=== PATIENT | female | born 1950 | race Caucasian/White ===

== ENCOUNTER → 2017-12-17 08:56 | Outpatient (CLI) | payer MEDICARE, SELFPAY ==
[2017-12-17 10:39] LABS: AST(SGOT) 16 U/L (15-37); Alanine Aminotransfer ALT/SGPT 24 U/L (13-56); Albumin, Serum 3.5 g/dL (3.2-5.0); Alkaline Phosphatase 58 U/L (45-117); Bilirubin, Direct 0.12 mg/dL (0.00-0.30); Cholesterol 208 mg/dL (200); Globulin 3.5 g/dL (2.2-4.2); High Density Lipoprotein 39 mg/dL; Triglycerides 252 mg/dL; Very Low Density Lipoprotein 50 mg/dL (5-40)
== END ==
PROVIDERS: Family Provider Family Medicine; PCP Family Medicine; Visit Provider Internal Medicine Cardiovascular Disease
DX: E78.5 Hyperlipidemia, unspecified (principal); I51.81 Takotsubo syndrome
CPT/HCPCS: 36415; 80061; 80076

== ENCOUNTER 2018-03-19 10:00 | Emergency (ER) | payer MEDICARE, SELFPAY ==
[2018-03-19 10:01] VITALS: BP 173/91; PULSE 70; RESP 14; TEMP 37.1; O2SAT 98; BMI 32.7
--- NOTE | 2018-03-19 10:18 | EKG12_ITS ---
Test Reason : CP Blood Pressure : / mmHG Vent. Rate : 066 BPM Atrial Rate : 066 BPM P-R Int : 140 ms QRS Dur : 088 ms QT Int : 392 ms P-R-T Axes : 050 062 050 degrees QTc Int : 410 ms Normal sinus rhythm Normal ECG Confirmed by JOHNATHAN CARBONE MD ([id number]), editor city YELENA MCINTYRE ([id number]) on 03/21/2018 3:46:46 PM Referred By: LLOYD Confirmed By:JOHNATHAN CARBONE MD
--- NOTE | 2018-03-19 10:25 | RAD_ITS ---
STUDY: X-RAY CHEST REASON FOR EXAM: Female, 67 years old. Chest pain TECHNIQUE: Portable upright chest COMPARISON: 09/26/2015 FINDINGS: The lungs are clear and expanded. Normal cardiomediastinal silhouette, tay and pleural margins. No acute osseous or upper abdominal process. RAD/Chest 1 View (Portable) IMPRESSION: No acute cardiopulmonary process. Electronically Signed: Jeffrey Laurent, at 11:13 EST Tel , Service support ,
[2018-03-19 10:39] LABS: Absolute Lymphocyte Count 2.24 X10^3/ul (0.83-4.51); Absolute Neutrophil Count 2.1 X10^3/uL (2.0-7.7); Basophil# 0.03 X10^3/uL; Basophil% 0.6 % (0-1); Eosinophil# 0.06 X10^3/uL; Eosinophils% 1.2 % (0-5); Hematocrit 43.3 % (37-47); Hemoglobin 13.7 g/dl (12.0-15.0); Lymphocyte # 2.24 X10^3/ul (4.0); Lymphocyte % 46.5 % (19-41); Mean Corp Hgb Conc 31.6 g/gl (32-36); Mean Corpuscular Hgb 32.2 pg (27.0-32.0); Mean Corpuscular Volume 101.6 fL (81-99); Mean Platelet Vol. 10.4 fl (6.2-12.0); Monocyte# 0.41 X10^3/uL; Monocyte% 8.5 % (0-10); Neutrophil # 2.08 X10^3/uL (2.7-7.7); Neutrophil % 43.2 % (47-70); Platelet Count 291 K/mm3 (150-450); RBC Distribution Width CV 12.7 % (11.6-14.6); RBC Distribution Width SD 47.4 fl (35.1-43.9); Red Blood Count 4.26 M/mm3 (4.2-5.4); White Blood Count 4.8 K/mm3 (4.4-11.0)
[2018-03-19 10:40] LABS: POSITIVE COUNT NO; POSITIVE DIFFERENTIAL NO; POSITIVE MORPHOLOGY NO
[2018-03-19 10:46] LABS: AST(SGOT) 15 U/L (15-37); Alanine Aminotransfer ALT/SGPT 24 U/L (13-56); Albumin, Serum 3.8 g/dL (3.2-5.0); Alkaline Phosphatase 70 U/L (45-117); Anion Gap 8 (5-15); BUN 13 mg/dL (7-18); Calcium,Total 8.9 mg/dL (8.5-10.1); Chloride 108 mmol/L (98-107); Creatinine, Serum 0.72 mg/dL (0.55-1.02); EST Glomerular Filtration Rate 85 mL/min (>60); Est Glom Filt Rate - Afr Amer 103 mL/min (>60); Estimated Creatinine Clearance 41.99 ml/min; Globulin 3.9 g/dL (2.2-4.2); Glucose 103 mg/dL (74-106); Lipase 121 U/L (73-393); Potassium 4.2 mmol/L (3.5-5.1); Protein, Total 7.7 g/dL (6.4-8.2); Sodium Level 144 mmol/L (136-145)
--- NOTE | 2018-03-19 10:52 | ED.VISSUMM ---
- ER Visit Summary Date of Service: 03/19/18 Chief Complaint: Chest pain History of Present Illness: The patient is a 67 F who states that she woke this morning at 415 and had a chest heaviness that has been constant since her arrival here in the department. This is over 6 hours of constant pain. Patient states that she also took an enema last night feeling like she needed to have a bowel movement. She notes nausea. She notes that she was having some sharp shooting chest pain in her chest also had a bit of a headache. She was feeling fatigued. She states she was concerned and her strip machine tender told her that she had chest heaviness she should come to the hospital. Patient has a history of tox obvious cardiomyopathy and October 2015 underwent heart catheterization that showed angiographically normal LAD and RCA. There is a 20% mild circumflex lesion. She is a former smoker. Also history of hypertension high cholesterol Physical Examination: Afebrile vital signs are stable Gen: Well-nourished well-developed Head: Normocephalic atraumatic Eyes: Perrl EOMI ENT: TMs clear no rhinorrhea moist mucous membranes Neck: Supple no lymphadenopathy no JVD nontender CVS: Regular rate rhythm no murmurs normal S1-S2 Respiratory: No distress clear to auscultation bilaterally chest nontender Abdomen: Soft nontender nondistended normal bowel sounds no masses Back: Nontender Extremity: Nontender no edema Skin: Normal color no rash Neuro: alert orientated ?3 CN II-XII intact normal strength sensation reflexes gait cerebellar Psych: Normal affect normal mood Test Results: EKG demonstrates a sinus rhythm at a rate 69. CBC chemistries liver lipase normal troponin is negative and again this is a greater than 6 hours of constant chest pain troponin. Chest x-ray negative. Emergency Department Course and Treatment: Patient had a heart cath just over 2 years ago. Her CYNTHIA score is 2. I believe this to be very atypical. Patient be discharged home to follow-up. Impression: 1. Chest pain 2. Nausea This note was generated with [employer] dictation software. It may contain incorrect words, spelling, and punctuation that were not noted in review of the chart prior to signing ED Disposition - Plan for ED Patient: Disposition: Home or Assisted Living Chief Complaint: Chest Pain Instructions: ED Chest Pain Atypical Unkn Cause Referrals: Glenroy Amezcua MD [Primary Care Provider] - 1 Week
[2018-03-19] MEDS: Ondansetron 4 MG/2 ML Vial IV (10:58)
--- NOTE | 2018-03-19 11:06 | ED.DCSUM_ITS ---
- ER Visit Summary Date of Service: 03/19/18 Chief Complaint: Chest pain History of Present Illness: The patient is a 67 F who states that she woke this morning at 415 and had a chest heaviness that has been constant since her arrival here in the department. This is over 6 hours of constant pain. Patient states that she also took an enema last night feeling like she needed to have a bowel movement. She notes nausea. She notes that she was having some sharp shooting chest pain in her chest also had a bit of a headache. She was feeling fatigued. She states she was concerned and her director sterile processing told her that she had chest heaviness she should come to the hospital. Patient has a history of tox obvious cardiomyopathy and October 2015 underwent heart catheterization that showed angiographically normal LAD and RCA. There is a 20% mild circumflex lesion. She is a former smoker. Also history of hypertension high cholesterol Physical Examination: Afebrile vital signs are stable Gen: Well-nourished well-developed Head: Normocephalic atraumatic Eyes: Perrl EOMI ENT: TMs clear no rhinorrhea moist mucous membranes Neck: Supple no lymphadenopathy no JVD nontender CVS: Regular rate rhythm no murmurs normal S1-S2 Respiratory: No distress clear to auscultation bilaterally chest nontender Abdomen: Soft nontender nondistended normal bowel sounds no masses Back: Nontender Extremity: Nontender no edema Skin: Normal color no rash Neuro: alert orientated ?3 CN II-XII intact normal strength sensation reflexes gait cerebellar Psych: Normal affect normal mood Test Results: EKG demonstrates a sinus rhythm at a rate 69. CBC chemistries liver lipase normal troponin is negative and again this is a greater than 6 hours of constant chest pain troponin. Chest x-ray negative. Emergency Department Course and Treatment: Patient had a heart cath just over 2 years ago. Her CYNTHIA score is 2. I believe this to be very atypical. Patient be discharged home to follow-up. Impression: 1. Chest pain 2. Nausea This note was generated with [employer] dictation software. It may contain incorrect words, spelling, and punctuation that were not noted in review of the chart prior to signing ED Disposition - Plan for ED Patient: Disposition: Home or Assisted Living Chief Complaint: Chest Pain Instructions: ED Chest Pain Atypical Unkn Cause Referrals: Glenroy Amezcua MD [Primary Care Provider] - 1 Week
[2018-03-19 11:36] LABS: Bacteria 0 SEEN /hpf (None Seen); Mucous, Urine 0 SEEN /hpf (<or=2+); Red Blood Cells-Urine 0 SEEN /hpf (0-5); White Blood Cells 0 SEEN /hpf (0-5)
[2018-03-19 11:38] LABS: Color, Urine Yellow (Yellow); Glucose, Dipstick Normal (Normal); Ketone-Dipstick Negative (Negative); Leukocyte Esterase-Dipstick 25 /ul (Negative); Nitrite-Dipstick Negative (Negative); Occult Blood-Urine 10 /ul (Negative); Protein-Dipstick Negative (Negative); Specific Gravity, Urine 1.005 (1.002-1.030); Urine Bilirubin Dipstick Negative (Negative); Urine Clarity Clear (Clear); Urine Urobilinogen Normal (Normal)
[2018-03-19 11:44] LABS: Squamous Epithelial Cells - UA 0-5 SEEN /hpf (5-10)
[2018-03-19 12:17] VITALS: BP 125/80; PULSE 80; RESP 18; TEMP 36.6; O2SAT 98
== END 2018-03-19 12:36 | disposition home or self-care (01) ==
PROVIDERS: Emergency Provider Emergency Medicine; Family Provider Family Medicine; PCP Family Medicine
DX: R07.89 Other chest pain (principal); R11.0 Nausea; R10.9 Unspecified abdominal pain; E78.00 Pure hypercholesterolemia, unspecified; I10 Essential (primary) hypertension; K21.9 Gastro-esophageal reflux disease without esophagitis; E66.9 Obesity, unspecified; Z87.891 Personal history of nicotine dependence
CPT/HCPCS: 71045; 80053; 81001; 83690; 84484; 85025; 93005; 99283; A4216; J2405

== ENCOUNTER → 2018-06-02 15:49 | Outpatient (CLI) | payer MEDICARE, SELFPAY ==
--- NOTE | 2018-06-02 12:30 | COLBX_PTH ---
PATIENT: WANDER LARIOS LOC: [facility] U#:[id number] AGE/SX: 74/F ROOM: RE06/02/[address]: Dr. Jp Bernal MD : [id number] BED: DIS: SPEC #: [id number] RECD: 06/02/18 15:13 STATUS: ROMAN REQuita #: [id number] VEGA: 06/02/18 12:[address]: Jp Bernal DEPT: SURGICAL PATHOLOGY RECD BY: Opal Crabtree ENTERED: 06/03/18 07:33 SP TYPE: COLON BX OTHR DR: Dr. Glenroy Amezcua MD [facility] Tissues: A - Transverse colon B - COLON BIOPSY Procedures: Surgery Specimen Level IV HEADER OPERATION: Colonoscopy with biopsy PRE-OP DIAGNOSIS: Screening / polyp TISSUE SUBMITTED: A - Transverse colon polyp biopsy, rule out adenoma, B - Hepatic flexure polyp biopsy, rule out adenoma MICROSCOPIC DIAGNOSIS A. Transverse colon polyp, biopsy: Hyperplastic polyp. B. Colonic polyp at hepatic flexure, biopsy: Tubular adenoma. AM:sammi 06/03/18 MICROSCOPIC DESCRIPTION Slides are reviewed. GROSS DESCRIPTION A - Received in fixative is one container labeled with the patient's name and designated transverse colon. The specimen consists of multiple irregular fragments of light small soft tissue that in aggregate measure 0.5 x 0.3 x 0.1 cm. The specimen is totally submitted in one cassette. B - Received in fixative is one container labeled with the patient's name and designated hepatic flexure. The specimen consists of two irregular fragments of light small soft tissue that in aggregate measure 0.5 x 0.3 x 0.1 cm. The specimen is totally submitted in one cassette. / AM:sammi 06/02/18 TC:5 CPT: 32929 x2
== END ==
PROVIDERS: Family Provider Family Medicine; PCP Family Medicine; Referring Provider Internal Medicine Gastroenterology; Visit Provider Internal Medicine Gastroenterology
DX: Z12.11 Encounter for screening for malignant neoplasm of colon (principal); K63.5 Polyp of colon
CPT/HCPCS: 88305

== ENCOUNTER → 2018-12-27 07:28 | Outpatient (CLI) | payer MEDICARE, SELFPAY ==
[2018-06-30 13:01] VITALS: BMI 30.9
[2018-12-27 08:21] LABS: AST(SGOT) 14 U/L (15-37); Alanine Aminotransfer ALT/SGPT 21 U/L (13-56); Albumin, Serum 3.5 g/dL (3.2-5.0); Alkaline Phosphatase 58 U/L (45-117); Bilirubin, Direct 0.11 mg/dL (0.00-0.30); Cholesterol 216 mg/dL (200); Globulin 3.4 g/dL (2.2-4.2); High Density Lipoprotein 43 mg/dL; Protein, Total 6.9 g/dL (6.4-8.2); Triglycerides 179 mg/dL; Very Low Density Lipoprotein 36 mg/dL (5-40)
== END ==
PROVIDERS: Family Provider Family Medicine; PCP Family Medicine; Referring Provider Internal Medicine Cardiovascular Disease; Visit Provider Internal Medicine Cardiovascular Disease
DX: E78.5 Hyperlipidemia, unspecified (principal)
CPT/HCPCS: 36415; 80061; 80076

== ENCOUNTER → 2019-03-30 07:54 | Outpatient (CLI) | payer MEDICARE, SELFPAY ==
[2019-02-05 13:20] VITALS: BMI 30.8
[2019-03-30 09:32] LABS: AST(SGOT) 16 U/L (15-37); Alanine Aminotransfer ALT/SGPT 21 U/L (13-56); Albumin, Serum 3.4 g/dL (3.2-5.0); Alkaline Phosphatase 49 U/L (45-117); Bilirubin, Direct 0.15 mg/dL (0.00-0.30); Cholesterol 168 mg/dL (200); Globulin 3.5 g/dL (2.2-4.2); High Density Lipoprotein 48 mg/dL; Protein, Total 6.9 g/dL (6.4-8.2); Triglycerides 138 mg/dL; Very Low Density Lipoprotein 28 mg/dL (5-40)
== END ==
PROVIDERS: Family Provider Family Medicine; PCP Family Medicine; Referring Provider Internal Medicine Cardiovascular Disease; Visit Provider Internal Medicine Cardiovascular Disease
DX: E78.5 Hyperlipidemia, unspecified (principal)
CPT/HCPCS: 36415; 80061; 80076

== ENCOUNTER → 2020-07-22 11:42 | Outpatient (CLI) | payer MEDICARE, SELFPAY ==
[2020-07-22 10:46] VITALS: BMI 32.7
[2020-07-22 13:18] LABS: AST(SGOT) 12 U/L (15-37); Alanine Aminotransfer ALT/SGPT 17 U/L (13-56); Albumin, Serum 3.6 g/dL (3.2-5.0); Alkaline Phosphatase 83 U/L (45-117); Bilirubin, Direct 0.14 mg/dL (0.00-0.30); Cholesterol 205 mg/dL (200); Globulin 4.3 g/dL (2.2-4.2); High Density Lipoprotein 48 mg/dL; Protein, Total 7.9 g/dL (6.4-8.2); Triglycerides 161 mg/dL; Very Low Density Lipoprotein 32 mg/dL (5-40)
== END ==
PROVIDERS: PCP Family Medicine; Referring Provider Internal Medicine Cardiovascular Disease; Visit Provider Internal Medicine Cardiovascular Disease
DX: I51.81 Takotsubo syndrome (principal); I25.2 Old myocardial infarction
CPT/HCPCS: 36415; 80061; 80076

== ENCOUNTER → 2020-08-04 09:39 | Outpatient (CLI) | payer MEDICARE, SELFPAY ==
[2020-07-22 10:46] VITALS: BMI 32.7
--- NOTE | 2020-08-04 09:42 | ECHOD_ITS ---
Reason For Study: Chest pain, Hx of Takotsubo CMP Procedure This was a 2D Doppler, Color Flow transthoracic echocardiogram. Exam performed in department. Left Ventricle Normal LV size. Left ventricular systolic function is normal. The estimated ejection fraction is 60 %. Stage 1 diastolic dysfunction. No regional wall motion abnormalities noted. Right Ventricle Normal RV size. Normal systolic function. Atria Normal left atrium. Normal right atrium. Mitral Valve Normal mitral valve. Tricuspid Valve Normal tricuspid valve. Mild tricuspid valve insufficiency. Pulmonary artery systolic pressure is 24 mmHg. Aortic Valve Normal aortic valve. Trisinus/trileaflet aortic valve. Pulmonic Valve Normal pulmonic valve. Great Vessels Normal aortic root. The pulmonary artery is normal size. Normal inferior vena cava. Pericardium/Pleural No pericardial effusion. MMode/2D Measurements & Calculations LVIDd: 3.4 cm IVSd: 1.1 cm Ao root diam: 2.7 cm LVIDs: 2.4 cm LVPWd: 0.89 cm RVDd: 2.9 cm FS: 29.5 % LAV(MOD-bp): 47.2 ml LA A4 area: 17.1 cm2 LA dimension(2D): 4.1 cm LAV(MOD-bp) Indexed: 26.1 ml/m2 LAV(MOD-sp2): 47.8 ml LAV(MOD-sp4): 42.0 ml RA A4 area: 11.5 cm2 Doppler Measurements & Calculations MV E max gonzalo: 79.9 cm/sec Lat Peak E' Gonzalo: 7.3 cm/sec Med Peak E' Gonzalo: 5.2 cm/sec MV A max gonzalo: 97.7 cm/sec E/E' lat: 10.9 E/E' med: 15.4 MV E/A: 0.82 Ao V2 max: 152.4 cm/sec LV V1 max: 125.0 cm/sec PA V2 max: 107.7 cm/sec Ao max P.3 mmHg LV V1 max P.2 mmHg TR max gonzalo: 231.9 cm/sec TR max P.5 mmHg ECHO/Echo Complete Interpretation Summary Normal LV size. Left ventricular systolic function is normal. The estimated ejection fraction is 60 %. Pulmonary artery systolic pressure is 24 mmHg. Stage 1 diastolic dysfunction. Ordering Physician: Alvarez Randhawa Referring Physician: Glenroy Amezcua Performed By: Kandace Toscano RDCS
== END ==
PROVIDERS: PCP Family Medicine; Referring Provider Internal Medicine Cardiovascular Disease; Visit Provider Internal Medicine Cardiovascular Disease
DX: I25.2 Old myocardial infarction (principal)
CPT/HCPCS: 93306

== ENCOUNTER → 2021-01-24 16:00 | Outpatient (CLI) | payer MEDICARE, SELFPAY ==
--- NOTE | 2021-01-24 16:10 | RAD_ITS ---
STUDY: X-RAY CHEST REASON FOR EXAM: Female, 70 years old. Chest pain. TECHNIQUE: PA and lateral views of the chest. COMPARISON: 03/19/2018. FINDINGS: The lungs are clear and expanded. There is no demonstrated pleural abnormality. Normal size heart. Normal mediastinum and tay. Normal visualized pulmonary arteries. There is atherosclerotic calcification of the aortic arch with tortuosity. There are diffuse degenerative changes of the visualized thoracic spine. There is degenerative osteoarthritis of the bilateral shoulders. There is no demonstrated abnormality of the visualized soft tissue structures of the upper abdomen. RAD/Chest PA and Lateral IMPRESSION: Degenerative changes, as described above. No demonstrated acute cardiopulmonary process. Electronically Signed: Chris Nevarez DO at 23:56 EDT Tel [phone], Service support ,
== END ==
PROVIDERS: PCP Family Medicine; Referring Provider Physician Assistant Medical; Visit Provider Physician Assistant Medical
DX: R07.9 Chest pain, unspecified (principal)
CPT/HCPCS: 71046

== ENCOUNTER → 2021-02-13 06:43 | Outpatient (CLI) | payer MEDICARE, SELFPAY ==
--- NOTE | 2021-02-13 10:20 | STRESSREP ---
Stress Test Report Exercise myocardial perfusion stress test. 70-year-old lady with a history of chest pain. Stress protocol: Resting EKG demonstrates normal sinus rhythm with a rate of 66 bpm normal intervals are noted resting blood pressure is 136/72 mmHg. The patient exercised according to regular Brice protocol for total duration of 6 minutes and 15 seconds. The maximum heart rate attained was 142 bpm which was 95% of maximum predicted heart rate the maximum workload was 7.7 metabolic equivalents. At rest there were no ST or T wave changes noted to suggest ischemia and at peak exercise upsloping ST changes were noted with did not meet the criteria for ischemia. The peak blood pressure was 164/80 mmHg. No clinical angina was noted. Myocardial perfusion protocol. 10.9 mCi of technetium 99m sestamibi was injected at rest. The patient exercised according to regular Brice protocol for 6 minutes and 15 seconds and at peak exercise 33.3 mCi of technetium 99m sestamibi was injected stress images were obtained stress and rest images were reconstructed and compared in the short axis vertical long horizontal long axis. Gated images were also obtained. Perfusion SPECT analysis: Review of the stress images demonstrate normal uptake of tracer noted in all areas of the myocardium. The resting images similarly demonstrate normal uptake of tracer noted in all areas of the myocardium. No areas of reversibility are noted to suggest ischemia and no previous infarct is noted. Gated SPECT analysis: The gated ejection fraction is 80%. Conclusion: Normal exercise myocardial perfusion stress test at a moderate workload. Good functional aerobic capacity. Preserved ejection fraction.
== END ==
PROVIDERS: PCP Family Medicine; Referring Provider Physician Assistant Medical; Visit Provider Physician Assistant Medical
DX: R07.9 Chest pain, unspecified (principal)
CPT/HCPCS: 78452; 93017; A9500; A4216

== ENCOUNTER 2021-06-03 10:52 | Emergency (ER) | payer MEDICARE, SELFPAY ==
--- NOTE | 2021-06-03 12:23 | EKG12_ITS ---
Test Reason : WEAKNESS Blood Pressure : / mmHG Vent. Rate : 065 BPM Atrial Rate : 065 BPM P-R Int : 150 ms QRS Dur : 086 ms QT Int : 408 ms P-R-T Axes : 064 054 047 degrees QTc Int : 424 ms Normal sinus rhythm Normal ECG When compared with ECG of 19-MAR-2018 10:02, No significant change was found Confirmed by JOHNATHAN CARBONE MD ([id number]), science editor LEILANI MELO ([id number]) on 06/07/2021 8:13:51 AM Referred By: NYLA Confirmed By:JOHNATHAN CARBONE MD
--- NOTE | 2021-06-03 13:32 | CT_ITS ---
STUDY: CT BRAIN WITHOUT CONTRAST REASON FOR EXAM: Female, 70 years old. CONFUSION/ INJURY TO HEAD -- MAY HAVE SMALL BLEED TO TOP OF BRAIN ON RIGHT RADIATION DOSAGE (If Supplied By Facility): CTDIvol = ( 44.99 ) mGy, DLP = ( 475.49 ) mGycm TECHNIQUE: Transaxial CT imaging of the brain was performed without administration of intravenous contrast material. Individualized dose optimization techniques were used for this CT. COMPARISON: No relevant priors. FINDINGS: Normal soft tissue structures. Normal calvarium. There is mild cerebral atrophy with widening of the extra-axial spaces and ventricular dilatation. There are areas of decreased attenuation within the white matter tracts of the supratentorial brain, consistent with microvascular disease changes. Normal basal ganglia and thalami. Normal brainstem. Normal cerebellum. Towards the vertex there is a subtle focus of hyperdensity within the right posterior parietal region compatible with a small focus of posttraumatic subarachnoid hemorrhage. Within the right temporoparietal region there is a focus of low attenuation suggesting a prior ischemic event image #16. There are no findings of an acute ischemic infarction. Normal visualized paranasal sinuses. There is bony demineralization of the posterior aspect of the right mastoid air cells and temporal bone. CT/Brain/Head without Contrast IMPRESSION: Small band of subarachnoid hemorrhage within the right hemisphere towards the vertex suggesting a small focus of posttraumatic hemorrhage. Area of prior ischemic change in the right temporoparietal region. No visualized acute fracture. Focal inhomogeneity of the posterior aspect of the right temporal bone /occipital bone, posterior to the mastoids. Recommend consideration for follow-up MRI with gadolinium to exclude the possibility of a subtle erosive lesion versus less likely osteopenia no Other similar lesion is demonstrated. N.B. : The above Results were Read Back by Patience Bedolla MD to Myrna Pierre MD, and understanding confirmed on 06/03/2021 14:00:54 (ET). Electronically Signed: Patience Bedolla MD at 13:56 EST ,
--- NOTE | 2021-06-03 16:51 | EDS_ITS ---
DATE OF SERVICE 06/03/21 CHIEF COMPLAINT: Weakness and headache. HISTORY OF PRESENT ILLNESS: The patient is a 70-year-old female who reports having headaches for the past 2 months which started after striking her head on a cabinet. She states that over the past 2 weeks her headaches have worsened. She was seen by her PCP and a head CT was obtained. She was told that it was unremarkable. She was started on Tramadol last night to help with pain. The patient reports being off balance and having some difficulty with coordination over the past 2 months. She had some nausea and vomiting last night which she thought was secondary to the Tramadol. The PCP did refer her to a neurologist but has not made an appointment yet. PAST MEDICAL HISTORY: Hypertension, high cholesterol, polio, NSTEMI. CURRENT MEDICATIONS: Baby aspirin, but no other anticoagulant. PHYSICAL EXAMINATION: GENERAL: The patient is sitting upright in bed, but in no acute distress. VITAL SIGNS: Blood pressure 179/69, temperature 96.2, heart rate 77, respiratory rate 16, pulse ox 96% on room air. HEENT: Unremarkable. LUNGS: Lung sounds are clear. HEART: Regular rate and rhythm. ABDOMEN: Soft and nontender. NEUROLOGIC: Unremarkable. NIH score is 0. DIAGNOSTIC DATA: EKG is sinus with no acute ischemia. CBC and chemistry studies are significant only for a glucose of 116. CT with CTA of the head is ordered. I received a call from the [employer] stating that after the noncontrast she noticed a small area of hemorrhage. CTA were held at that time. Formal report for the CT reveals a small band of subarachnoid hemorrhage in the right hemisphere toward the vertex suggesting a small focus of posttraumatic hemorrhage. There is an area of prior ischemic change in the right temporoparietal region. There is no focal acute fracture. There is an homogeneity in the posterior aspect of the right temporal bone, occipital bone, posterior to the mastoids. EMERGENCY DEPARTMENT COURSE AND MEDICAL DECISION MAKING: The patient had been given a small dose of Toradol, Reglan and Benadryl and IV fluids. On repeat evaluation, she reports that her headache is improved. She does agree to trauma transfer for further observation. Due to continued elevated blood pressure in the 160-170 range she was given 10 mg IV Labetalol. IMPRESSION: Subarachnoid hemorrhage. DISPOSITION/PLAN: She was initially discussed with Rubin Sales who declined based on time-frame from known injury. Because I have a CT scan from three days ago that is read as normal, and I am not able to visualize the image, I do not feel comfortable with this. I spoke with [facility] and the patient has been accepted there in transfer. Daughter and patient at the bedside have been updated. Transfer to [facility].
[2021-06-04 01:12] LABS: Anion Gap 5 (5-15); BUN 12 mg/dL (7-18); BUN/Creat Ratio 21.2 RATIO (10-20); Calcium,Total 9.1 mg/dL (8.5-10.1); Chloride 103 mmol/L (98-107); Creatinine, Serum 0.57 mg/dL (0.55-1.02); EST Glomerular Filtration Rate 111 mL/min (>60); Est Glom Filt Rate - Afr Amer 135 mL/min (>60); Glucose 116 mg/dL (74-106); Potassium 4.1 mmol/L (3.5-5.1); Sodium Level 137 mmol/L (136-145)
[2021-06-04 01:13] LABS: Absolute Lymphocyte Count 1.25 X10^3/uL (0.83-4.51); Absolute Neutrophil Count 5.5 X10^3/uL (2.0-7.7); Basophil# 0.02 X10^3/uL; Basophil% 0.3 % (0-1); Eosinophil# 0.02 X10^3/uL; Eosinophils% 0.3 % (0-5); Hematocrit 39.2 % (37-47); Hemoglobin 12.7 g/dL (12.0-15.0); Lymphocyte # 1.25 X10^3/ul (0.83-4.51); Mean Corp Hgb Conc 32.4 g/dL (32-36); Mean Corpuscular Hgb 31.4 pg (27.0-32.0); Mean Corpuscular Volume 96.8 fL (81-99); Monocyte# 0.48 X10^3/uL; Monocyte% 6.5 % (0-10); NRBC Flagged by Analyzer 0 % (0-5); Neutrophil # 5.54 X10^3/uL (2.7-7.7); Neutrophil % 75.4 % (47-70); Platelet Count 323 K/mm3 (150-450); RBC Distribution Width SD 43.3 fl (35.1-43.9); Red Blood Count 4.05 M/mm3 (4.2-5.4); White Blood Count 7.4 K/mm3 (4.4-11.0)
== END 2021-06-03 18:10 | disposition short-term general hospital (02) ==
PROVIDERS: Emergency Provider Emergency Medicine; PCP Internal Medicine; Visit Provider Emergency Medicine
DX: S06.6X9A Traumatic subarachnoid hemorrhage with loss of consciousness of unspecified duration, initial encounter (principal); W22.8XXA Striking against or struck by other objects, initial encounter; I10 Essential (primary) hypertension; I25.2 Old myocardial infarction; Z79.82 Long term (current) use of aspirin; Z79.899 Other long term (current) drug therapy
CPT/HCPCS: 70450; 80048; 85025; 93005; 96361; 96374; 96375; 99285

== ENCOUNTER 2021-06-12 13:10 | Emergency (ER) | payer MEDICARE, SELFPAY ==
[2021-06-12 13:11] VITALS: BP 144/82; PULSE 85; RESP 16; TEMP 36; O2SAT 97; BMI 30.6
--- NOTE | 2021-06-12 13:39 | CT_ITS ---
STUDY: CT BRAIN WITHOUT CONTRAST REASON FOR EXAM: Female, 70 years old. Headache, recent subarachnoid and coiling RADIATION DOSAGE (If Supplied By Facility): CTDIvol = ( 44.99 ) mGy, DLP = ( 762.36 ) mGycm TECHNIQUE: Transaxial CT imaging of the brain was performed without administration of intravenous contrast material. Individualized dose optimization techniques were used for this CT. COMPARISON: Comparison is made with prior study dated 06/03/2021. FINDINGS: Normal soft tissue structures. Normal calvarium. There is mild cerebral atrophy with widening of the extra-axial spaces and ventricular dilatation. Stable focal area of encephalomalacia right posterior temporoparietal lobe. This is unchanged. Normal basal ganglia and thalami. Normal brainstem. Normal cerebellum. There is no intracranial hemorrhage. There are no findings of an acute ischemic infarction. Normal visualized paranasal sinuses. CT/Brain/Head without Contrast IMPRESSION: Chronic involutional changes of the brain. Stable focal encephalomalacia in the posterior right parietal temporal lobes. No evidence of acute hemorrhage at this time. Electronically Signed: Tom Dawkins MD at 14:01 EST ,
--- NOTE | 2021-06-12 14:34 | EX.ED.VIS.HA ---
HPI History of Present Illness Chief Complaint: Headache Informant: patient Onset/Context/Timing Onset: Today Narrative Narrative: Patient is a 70-year-old female with remote history of head injury about 2 months ago and subsequent subarachnoid hemorrhage requiring coiling 5 days ago at [facility]. She follows with Dr. Weber, neurosurgery. She is presenting today with a worsening headache in her right forehead. Patient states she has had headaches since her procedure and she is been taking Tylenol every 4 hours as prescribed. Today the characteristic of the headache change. She now feels like there is a film sensation over her right eye, episcopal and forehead. She feels that she is looking through a film as well. She denies any new injuries. She states she is never anything like this before. No nausea or vomiting. No other complaints at this time. [facility] Medical History (Updated 06/12/21 @ 15:[address] Serina Colindres, ) Colon polyps Colon polyps GERD (gastroesophageal reflux disease) History of nephrolithiasis History of non-ST elevation myocardial infarction (NSTEMI) (06/30/14) History of poliomyelitis Hyperlipidemia Nephrolithiasis Obesity Poliomyelitis Takotsubo cardiomyopathy Home Medications cholecalciferol (vitamin D3) 25 mcg (1,000 unit) capsule 25 mcg PO DAILY 07/22/20 [History Last Taken Unknown] ramipril 10 mg capsule 10 mg PO DAILY #30 cap 01/31/21 [Rx Last Taken Unknown] valacyclovir 1,000 mg PO TID #21 tab 06/12/21 [Rx Last Taken Unknown] Allergy/AdvReac Type Severity Reaction Status Date / Time chocolate flavor Allergy Severe Anaphylaxis Verified 06/12/21 13:10 latex Allergy Intermediate Rash and Verified 06/12/21 13:10 swelling gemfibrozil AdvReac Severe Myalgias Verified 06/12/21 13:10 pravastatin AdvReac Intermediate Myalgia Verified 06/12/21 13:10 simvastatin AdvReac Intermediate Nausea and Verified 06/12/21 13:10 abdominal pain Family History Mother CAD (coronary artery disease) Father CAD (coronary artery disease) Surgical History History of left heart catheterization (10/06/15) Social History Smoking Status: Former smoker quit date: 05/06/06 alcohol intake: current alcohol intake frequency: 0-2 drinks per day Alcohol type: wine ROS ROS ED Constitutional Constitutional ED: Denies chills or fever(s) Eyes Eyes: Reports change in vision right; Denies blurry vision or diplopia ENT ENT ED: Denies ear pain, rhinorrhea or sore throat Cardiovascular Cardiovascular: Denies chest pain Respiratory/Chest Respiratory/Chest: Denies dyspnea Gastrointestinal Gastrointestinal: Denies abdominal pain, nausea or vomiting Musculoskeletal Musculoskeletal: Denies arthralgias, myalgias or neck pain Integumentary Denies rash Neurologic Neurologic: Reports headache(s); Denies paresthesias or weakness Psychiatric Psychiatric: Denies anxiety or depression EXAM Physical Exam Const Vital Signs: 06/12/21 13:11 06/12/21 14:44 Temperature 96.8 F L Temperature Source Temporal Pulse Rate 85 69 Respiratory Rate 16 16 Blood Pressure 144/82 H 142/72 H Blood Pressure Mean 102 95 Pulse Ox 97 98 Oxygen Delivery Method Room Air Room Air Positive well nourished and well developed General Appearance ED: well developed HEENT Reports normocephalic and TM's clear atraumatic; Negative for tenderness Tympanic Membrane ED: Yes TM's clear Eyes PERRL and EOMs intact bilaterally Neck supple and no meningeal signs Resp normal respiratory effort and clear to auscultation bilaterally Cardio regular rate, regular rhythm and no murmurs GI non-tender and non-distended Auscultation: normoactive bowel sounds Palpation: soft Extremity normal to inspection and full ROM Neuro oriented x3 Neuro Narrative: Patient is equal sensation in her extremities. She has paresthesias in the V1 distribution of her right forehead. Sensorium / Orientation: awake and alert Coordination / Balance: [id number] test normal Motor Exam: strength 5/5 throughout; Negative for general weakness Psych mental status grossly normal Skin Lesions: no lesions Rashes: no rashes MDM MDM MDM Narrative Medical decision making narrative: Patient evaluated for right-sided headache and sensation of film over her right forehead, episcopal and eye. Patient peers nontoxic no acute distress. Her blood pressure is mildly elevated at 144/82. She has a normal neurologic exam with no focal deficits except for subjective paresthesias in the V1 distribution of her forehead. CT of the head shows stable findings. No signs of an acute bleed. I did discuss the patient's case with her neurosurgeon, Dr. Miller, who states her procedure went smoothly and he is not concerned for complications given her normal CT today and symptoms. Patient's visual acuity is 20/70 OD and 20/50 OS. She is not have any conjunctival injection and I do not think this is acute angle glaucoma. Patient is encouraged to follow-up with ophthalmology in 1 to 2 days for eye evaluation. She is counseled that with a dermatomal distribution I question if there could be an early shingles causing the pain. Patient will be empirically placed on valacyclovir for this. She will follow up with her primary care doctor as well. She is counseled return precautions. She is discharged home in stable condition. Radiography Diagnostic Testing: Clinical Impression(s) from Imaging Studies Brain CT 06/12/21 13:39 IMPRESSION: Chronic involutional changes of the brain. Stable focal encephalomalacia in the posterior right parietal temporal lobes. No evidence of acute hemorrhage at this time. Electronically Signed: Tom Dawkins MD at 14:01 EST , Discharge Plan Triage Chief Complaint: Headache ED Provider: Serina Colindres Dx/Rx/DC Orders Clinical Impression: Headache, Facial paresthesia Instructions: ED Headache Unspecified, ED Paraesthesias Prescriptions: New valacyclovir 1 gram tablet 1,000 mg PO TID Qty: 21 RF: 0 No Action cholecalciferol (vitamin D3) 25 mcg (1,000 unit) capsule 25 mcg PO DAILY RF: 0 ramipril 10 mg capsule 10 mg PO DAILY Qty: 30 RF: 11 Primary Care Provider: Stella Cordoba Referrals: Stella Cordoba MD [Primary Care Provider] - Activity Restrictions/Additional Instructions: The exact cause of your headache on the right forehead and altered sensation is not clear. Your CT was normal today. I discussed the case with your neurosurgeon who is comfortable with you being discharged home. It is possible that the headache could be nerve pain or early shingles. You have been started on an antiviral, [place] acyclovir for this. Continue taking Tylenol for your headache. Do not take more than 3 g in 24 hours. Return the emergency room if you develop progressive or worsening symptoms especially new neurologic symptoms such as slurred speech, acute vision change or acute fever. Disposition Disposition: Home, Self Care
[2021-06-12 14:44] VITALS: BP 142/72; PULSE 69; RESP 16; O2SAT 98
[2021-06-12 15:18] VITALS: BP 143/72; PULSE 73; RESP 16; O2SAT 99
== END 2021-06-12 15:21 | disposition home or self-care (01) ==
PROVIDERS: Emergency Provider Emergency Medicine; PCP Internal Medicine; Visit Provider Emergency Medicine
DX: R51.9 Headache, unspecified (principal); R20.2 Paresthesia of skin; I25.2 Old myocardial infarction; Z86.010 Personal history of colon polyps; Z87.891 Personal history of nicotine dependence
CPT/HCPCS: 70450; 99284; A4216